=== PATIENT | male | born 1960 | race African-American/Black ===

== ENCOUNTER → 2019-09-18 | Outpatient (CLI) | payer OTHER ==
[~2019-09-18] VITALS: Ht 172.7 cm; Wt 108.9 kg
[~2019-09-18] MED LIST: BYSTOLIC20 MG PO; MULTIVITAMINS1 EAC7 PO; OLMESARTAN-HCT1 EAC2 PO; OXYCONTIN30 MG PO; PERCOCET 10-321 EAC1 PO
--- NOTE | 2019-09-19 16:07 | PATH ---
[facility] [address] [place] [address] PATHOLOGY RPT PROCEDURE Name: TENZIN BERMUDEZ Room #: REG CL MKadyR.#: [id number] Admission: 09/18/19 Date of : 60 Discharge: Report #: [id number] Path Case #: [id number] [facility] Accession Number: [id number] . 01 Material submitted: . PART A: colon - SIGMOID COLON POLYP. Modifiers: sigmoid PART B: rectum - RECTAL POLYP X2 . 01 Clinical history: . Screening Colon polyp, rectal polyps . 02 Diagnosis: A. Polyp, sigmoid colon polyp, endoscopic biopsy: - Tubular adenoma. - Negative for high grade dysplasia. . B. Polyp x2, rectum, endoscopic biopsy: - Hyperplastic polyps. - Negative for dysplasia. . (IUV:mml; 09/19/2019) QLM 09/19/2019 1307 Local . 02 Electronically signed: . Valencia Simeon MD, Pathologist NPI- [id number] . 01 Gross description: . A. The specimen is received in formalin, labeled "Tenzin Bermudez, sigmoid colon polyp" and consists of 2 fragments of pink-guaman tissue measuring 0.4 x 0.3 cm and 0.2 x 0.2 cm which are entirely submitted in A1. . B. The specimen is received in formalin, labeled "Tenzin Bermudez, rectal polyp x2" and consists of 2 fragments of pink-guaman tissue measuring 0.4 x 0.2 cm and 0.3 x 0.2 cm which are entirely submitted in B1. (SDY; 09/18/2019) SYU/SYU 09/18/2019 1713 Local . 02 Pathologist provided ICD-10: D12.5, K62.1 . 02 CPT . 111406, 418681 Specimen Comment: A courtesy copy of this report has been sent to [phone] Specimen Comment: Report sent to [address] [address] PATHOLOGY RPT PROCEDURE Name: TENZIN BERMUDEZ [id number]mission: 09/18/19 Date of : 60 Discharge: Report #: [id number] Path Case #: [id number] Performed at: 01 [facility] [place] [address], [place] [id number] MD Willem Bob MD Phone: [phone] Performed at: [address] [id number] MD Valencia Simeon MD Phone: [phone]
--- NOTE | 2019-09-20 08:48 | P ---
[facility] [address] [place] [address] PROCEDURE REPORT Name: CAROLINE [facility]ERMUDEZ [id number]mission: 09/18/19 Attend Phys: Nii De Santiago Discharge: Date of : 60 Report #: [id number] THIS REPORT FOR: cc: [facility] Nii Holt MD ~ CC: Nii Bran Sr. MD [facility] DATE OF SERVICE: 09/18/2019 PROCEDURE PERFORMED: Colonoscopy with biopsies. HISTORY OF PRESENT ILLNESS: The patient is a 59-year-old male who presents today for routine screening colonoscopy. No previous history of colonoscopy. He does have a family history of colon cancer in a grandparent. He denies any symptoms. DESCRIPTION OF PROCEDURE: The risks and benefits of the procedure were explained to the patient, those risks including but not limited to bleeding, perforation and the risk of sedation. He understood these risks and gave informed consent. Sedation was given using propofol per anesthesia. Next, a digital rectal exam was initially performed, which was normal. Next, using a standard Olympus colonoscope, the scope was placed in the patient's anus and advanced under direct vision to the cecum. The overall prep was good. The cecum and ileocecal valve were normal in appearance. Ascending, transverse and descending colon were normal. In the sigmoid colon, a single 3 mm sessile polyp was noted. This was removed with cold forceps, otherwise normal. In the rectum, two 3-4 mm sessile polyps were noted, both were removed with cold forceps. On retroflexion, no abnormalities were noted. The scope was then withdrawn and the procedure terminated. The patient tolerated the procedure well. IMPRESSION: 1. Small colonic polyps. 2. Otherwise, normal colonoscopy. RECOMMENDATIONS: 1. Await biopsy results. 2. Repeat colonoscopy in 5 years. [facility] [address] [place] [address] PROCEDURE REPORT Name: CAROLINE BERMUDEZ Room #: REG CL [facility]#: [id number] Admission: 09/18/19 Attend Phys: Nii De Santiago Discharge: Date of : 60 Report #: [id number] Thank you for allowing me to participate in his care. <ELECTRONICALLY SIGNED> By: Nii Holt MD 09/20/19 0848 1025 1216 Nii Holt MD /nt
== END | disposition home or self-care (01) ==
LOC: GI 06-19 18:32
PROVIDERS: ATTEND Specialist
DX: Z12.11 Encounter for screening for malignant neoplasm of colon (principal); Z80.0 Family history of malignant neoplasm of digestive organs; D12.5 Benign neoplasm of sigmoid colon; K62.1 Rectal polyp; I10 Essential (primary) hypertension; E11.9 Type 2 diabetes mellitus without complications; Z98.890 Other specified postprocedural states; Z11.59 Encounter for screening for other viral diseases; Z79.899 Other long term (current) drug therapy
CPT/HCPCS: 62110; 62900